=== PATIENT | female | born 1995 | race American Indian/Alaskan Native ===

== ENCOUNTER 2021-03-09 10:34 | Emergency (ER) | payer OTHER ==
--- NOTE | 2021-03-09 11:33 | Emergency Department Report ---
ED General Adult HPI - General Stated complaint: WHITE BUMPS ON LEGS Time Seen by Provider: 03/09/21 11:18 - History of Present Illness Initial comments: 26-year-old -[place] female patient presents with complaints of itchy painful bumps bilaterally to her legs intermittently x2 weeks. She states her symptoms began when she started sleeping on someone's couch nightly. She states that the bumps come to ahead and pus comes out. She denies any fever/chills/sweats or swelling to her legs. No prior medical history per patient. Severity scale (0 -10): 2 - Related Data Previous Rx's Medication Instructions Recorded Last Taken Type Mupirocin [Bactroban 2% OINT] 1 applic TP TID 7 Days #1 tube 03/09/21 Unknown Rx Sulfamethoxazole/Trimethoprim 1 each PO BID 10 Days #20 tablet 03/09/21 Unknown Rx [Bactrim DS TAB] Allergies Allergy/AdvReac Type Severity Reaction Status Date / Time Penicillins Allergy Unknown Verified 03/09/21 11:33 ED Review of Systems ROS: Stated complaint: WHITE BUMPS ON LEGS Other details as noted in HPI Constitutional: denies: chills, fever Skin: lesions. denies: change in color Neurological: denies: numbness, paresthesias, abnormal gait Hematological/Lymphatic: denies: swollen glands ED Past Medical Hx - Medications Home Medications: Home Medications Medication Instructions Recorded Confirmed Last Taken Type Mupirocin [Bactroban 2% OINT] 1 applic TP TID 7 Days #1 tube 03/09/21 Unknown Rx Sulfamethoxazole/Trimethoprim 1 each PO BID 10 Days #20 tablet 03/09/21 Unknown Rx [Bactrim DS TAB] ED Physical Exam - General General appearance: alert, in no apparent distress, obese - Head Head exam: Present: atraumatic, normocephalic - Eye Eye exam: Present: normal appearance. Absent: scleral icterus - Respiratory Respiratory exam: Absent: respiratory distress - Cardiovascular Cardiovascular Exam: Present: regular rate - Neurological Exam Neurological exam: Present: alert, oriented X3 - Psychiatric Psychiatric exam: Present: normal affect, normal mood - Skin Skin exam: Present: warm, dry, intact, normal color, other (Small right bump noted to right lateral lower leg; minimal purulent drainage expressed with pressing; healed lesions noted to left lower leg; no cellulitic changes noted or swelling). Absent: rash ED Course Vital Signs 03/09/21 03/09/21 03/09/21 11:20 11:29 12:15 Temperature 98.0 F 97.6 F Pulse Rate 106 H 91 H 66 Respiratory 18 12 Rate Blood Pressure 134/95 Blood Pressure 123/63 [Right] O2 Sat by Pulse 99 99 Oximetry 03/09/21 12:24 Temperature 98.5 F Pulse Rate 96 H Respiratory 18 Rate Blood Pressure Blood Pressure 135/83 [Right] O2 Sat by Pulse 98 Oximetry ED Medical Decision Making - Medical Decision Making We will treat for folliculitis. Recommend patient follows up with PCP for further evaluation in 3 to 5 days. Strict return precautions were discussed and detail with patient verbalizes understanding. Critical care attestation.: If time is entered above; I have spent that time in minutes in the direct care of this critically ill patient, excluding procedure time. ED Disposition Clinical Impression: Folliculitis Disposition: 01 HOME / SELF CARE / HOMELESS Is pt being admited?: No Condition: Stable Instructions: Folliculitis Prescriptions: Sulfamethoxazole/Trimethoprim [Bactrim DS TAB] 1 each PO BID 10 Days #20 tablet Mupirocin [Bactroban 2% OINT] 1 applic TP TID 7 Days #1 tube Referrals: [facility] [Provider Group] - 3-5 Days
[2021-03-09 12:25] VITALS: BP 135/83
== END 2021-03-09 12:22 | disposition home or self-care (01) ==
LOC: ED 10:34
DX: L73.9 Follicular disorder, unspecified (principal); Z88.0 Allergy status to penicillin; Z79.899 Other long term (current) drug therapy
CPT/HCPCS: 99282